=== PATIENT | female | born 1935 | race Caucasian/White ===

== ENCOUNTER 2023-11-05 13:22 | Inpatient (IN) | payer MEDICARE, OTHER ==
[~2023-11-05 13:22] MED LIST: Iopamidol-370 76% 500 ML MDV (1 ML CHARGE) ONE
[2023-11-05] MEDS ORDERED: Heparin 10,000 UNITS/ 10 ML VIAL ONE ×2 (14:22→14:42)
[2023-11-05] MEDS ORDERED: Nitroglycerin 50 MG/250 ML BOT 250 ML ONE (14:24)
[2023-11-05] MEDS ORDERED: Tenecteplase 50 MG ONE (14:24)
[2023-11-05] MEDS ORDERED: Propofol 500 MG/50 ML VIAL ONE (14:25)
[2023-11-05] MEDS ORDERED: SUGAMMADEX SODIUM 200 MG/2 ML VIAL ONE (14:25)
[2023-11-05] MEDS ORDERED: Vasopressin 20 UNITS/ML VIAL ONE (14:26)
[2023-11-05] MEDS ORDERED: fentaNYL 50 mcg/mL 1 mL Vial ONE (14:32)
[2023-11-05 14:34] LABS: #Basophils 0.1 thou/uL (0.0-0.2); #Eosinphils 0.2 thou/uL (0.0-0.7); #Monocytes 0.8 thou/uL (0.11-0.59); #Neutrophils 4.4 thou/uL (1.40-6.50); %Basophils 0.7 % (0.0-1.0); %Lymphocytes 33.2 % (21.0-51.0); %Monocytes 9.4 % (0.0-10.0); %Neutrophils 54.3 % (42.0-75.0); Hematocrit 53.2 % (36.0-47.0); Hemoglobin 17.3 g/dL (12.0-16.0); Mean Corpuscular HGB CONC 32.5 g/dL (32.0-36.0); Mean Corpuscular Volume 86.1 fl (78.0-98.0); Mean Platelet Volume 10.9 fL (7.4-10.4); Platelet Count 159 10x3/uL (130-400); RBC Distribution Width 13.7 % (11.5-14.5); Red Blood Cell (RBC) Count 6.18 mill/uL (4.20-5.40); White Blood Cell (WBC) Count 8.1 10x3/uL (4.8-10.8)
[2023-11-05 14:47] LABS: INR-International Normal Ratio 1.1; PTT 27.4 sec (22.9-36.1); Prothrombin Time 14.1 sec (12.0-14.7)
[2023-11-05 14:54] LABS: ALT (SGPT) 12 U/L (8-55); AST (SGOT) 19 U/L (5-34); Albumin 3.9 g/dL (3.4-4.8); Alkaline Phosphatase 100 U/L (40-110); Anion Gap 13 mmol/L (10-20); BUN (Urea Nitrogen) 20 mg/dL (9.8-20.1); Bilirubin, Total 1.3 mg/dL (0.2-1.2); Calc. Creatinine Clearance 0 mL/min (70-130); Calcium 9.8 mg/dL (7.8-10.44); Carbon Dioxide 20 mmol/L (23-31); Chloride 109 mmol/L (98-107); Estimated GFR 66; Globulin 2.9 g/dL (2.4-3.5); Glucose 129 mg/dL (83-110); Potassium 4.2 mmol/L (3.5-5.1); Protein, Total 6.8 g/dL (5.8-8.1); Sodium 138 mmol/L (136-145)
[2023-11-05 14:59] LABS: Troponin I Less than 0.010 ng/mL (< 0.028)
[2023-11-05 16:24] VITALS: BMI 27.4
[2023-11-05] MEDS ORDERED: hydrALAZINE 20 MG/ML VIAL SLOW IVP PRN (16:43)
[2023-11-05] MEDS ORDERED: HYDROcodone/Acetaminophen 5/325 mg Tablet PO PRN (16:43)
[2023-11-05] MEDS ORDERED: Communication Order-Pharmacy FS SCH (16:43)
[2023-11-05] MEDS ORDERED: Labetalol HCl 100 MG/20 ML VIAL SLOW IVP PRN (16:43)
[2023-11-05] MEDS ORDERED: niCARdipine 25 MG in Sodium Chloride 0.9% 250 ML 250 ML IVPB PRN (16:43)
[2023-11-05] MEDS ORDERED: Metoprolol Tartrate 5 MG (5 mL) VIAL IVP PRN ×2 (18:13→19:08)
[2023-11-05] MEDS ORDERED: Metoprolol Tartrate 5 MG (5 mL) VIAL IVP SCH (18:15)
[2023-11-05] MEDS ORDERED: Sodium Chloride 0.9% 500 ML IV SCH (19:15)
[2023-11-05] MEDS ORDERED: Digoxin 0.5 MG/2 ML AMP SLOW IVP SCH (19:15)
[2023-11-05] MEDS: Sodium Chloride 0.9% 1,000 ML IV SCH (20:24)
[2023-11-05] MEDS: Atorvastatin Calcium 40 MG TAB PO SCH (20:50)
[2023-11-06] MEDS: Acetaminophen 325 MG TAB PO PRN (10:24)
[2023-11-06] MEDS ORDERED: Fluticasone Propionate Nasal Spray 16 gm Bottle NASAL SCH (11:15)
[2023-11-06] MEDS: Sodium Chloride 0.9% 1,000 ML IV SCH (11:43)
[2023-11-06 16:13] LABS: Cardiac Risk 3.1 (Less than 4.5)
[2023-11-06 16:15] LABS: Troponin I Less than 0.010 ng/mL (< 0.028)
[2023-11-06 17:43] LABS: Troponin I Less than 0.010 ng/mL (< 0.028)
[2023-11-06] MEDS: Aspirin 325 mg Enteric Coated Tablet PO SCH (20:35)
[2023-11-06] MEDS: Atorvastatin Calcium 40 MG TAB PO SCH (20:35)
[2023-11-07] MEDS: Levothyroxine Sodium 112 MCG TAB PO SCH (05:23)
[2023-11-07 05:39] LABS: #Eosinphils 0.2 thou/uL (0.0-0.7); #Monocytes 0.6 thou/uL (0.11-0.59); #Neutrophils 4.5 thou/uL (1.40-6.50); %Basophils 0.5 % (0.0-1.0); %Eosinophils 2.2 % (0.0-10.0); %Lymphocytes 34.6 % (21.0-51.0); %Monocytes 7.4 % (0.0-10.0); %Neutrophils 54.9 % (42.0-75.0); Hematocrit 49.5 % (36.0-47.0); Hemoglobin 16.3 g/dL (12.0-16.0); Mean Corpuscular HGB CONC 32.9 g/dL (32.0-36.0); Mean Corpuscular Hemoglobin 27.7 pg (27.0-31.0); Mean Platelet Volume 10.9 fL (7.4-10.4); Platelet Count 167 10x3/uL (130-400); RBC Distribution Width 13.4 % (11.5-14.5); Red Blood Cell (RBC) Count 5.89 mill/uL (4.20-5.40); White Blood Cell (WBC) Count 8.1 10x3/uL (4.8-10.8)
[2023-11-07 05:47] LABS: Hemoglobin A1c 6.4 % (4.0-6.0)
[2023-11-07 06:03] LABS: Anion Gap 10 mmol/L (10-20); BUN (Urea Nitrogen) 13 mg/dL (9.8-20.1); Calc. Creatinine Clearance 62 mL/min (70-130); Calcium 9.8 mg/dL (7.8-10.44); Carbon Dioxide 23 mmol/L (23-31); Chloride 114 mmol/L (98-107); Estimated GFR 81; Glucose 118 mg/dL (83-110); Potassium 3.7 mmol/L (3.5-5.1); Sodium 143 mmol/L (136-145)
[2023-11-07] MEDS: Fluticasone Propionate Nasal Spray 16 gm Bottle NASAL SCH (08:45)
[2023-11-07] MEDS ORDERED: Digoxin 0.5 MG/2 ML AMP SLOW IVP SCH (15:45)
[2023-11-07] MEDS: Acetaminophen 325 MG TAB PO PRN (15:46)
[2023-11-07] MEDS: Aspirin 325 mg Enteric Coated Tablet PO SCH (20:07)
[2023-11-07] MEDS: Atorvastatin Calcium 40 MG TAB PO SCH (20:07)
[2023-11-07] MEDS: Famotidine 20 MG TAB PO SCH (20:08)
[2023-11-07] MEDS: Digoxin 0.5 MG/2 ML AMP SLOW IVP SCH (23:04)
[2023-11-08] MEDS: Digoxin 0.5 MG/2 ML AMP SLOW IVP SCH (06:13)
[2023-11-08] MEDS: Levothyroxine Sodium 112 MCG TAB PO SCH (06:14)
[2023-11-08 06:27] LABS: #Eosinphils 0.2 thou/uL (0.0-0.7); #Monocytes 0.9 thou/uL (0.11-0.59); #Neutrophils 5.2 thou/uL (1.40-6.50); %Basophils 0.4 % (0.0-1.0); %Eosinophils 1.9 % (0.0-10.0); %Lymphocytes 30.5 % (21.0-51.0); %Monocytes 9.4 % (0.0-10.0); %Neutrophils 57.4 % (42.0-75.0); Hematocrit 49.5 % (36.0-47.0); Hemoglobin 16.3 g/dL (12.0-16.0); Mean Corpuscular HGB CONC 32.9 g/dL (32.0-36.0); Mean Corpuscular Hemoglobin 27.6 pg (27.0-31.0); Mean Corpuscular Volume 83.9 fl (78.0-98.0); Mean Platelet Volume 10.5 fL (7.4-10.4); Platelet Count 160 10x3/uL (130-400); RBC Distribution Width 13.3 % (11.5-14.5)
[2023-11-08 06:45] LABS: Anion Gap 11 mmol/L (10-20); BUN (Urea Nitrogen) 11 mg/dL (9.8-20.1); Calc. Creatinine Clearance 65 mL/min (70-130); Calcium 9.6 mg/dL (7.8-10.44); Carbon Dioxide 22 mmol/L (23-31); Chloride 114 mmol/L (98-107); Estimated GFR 84; Glucose 108 mg/dL (83-110); Sodium 143 mmol/L (136-145)
[2023-11-08] MEDS: Famotidine 20 MG TAB PO SCH ×2 (08:55→20:28)
[2023-11-08] MEDS: Fluticasone Propionate Nasal Spray 16 gm Bottle NASAL SCH (09:02)
[2023-11-08] MEDS ORDERED: Enoxaparin 40 MG (0.4 mL) SYRINGE SC SCH (10:30)
[2023-11-08] MEDS: Aspirin 325 mg Enteric Coated Tablet PO SCH (20:28)
[2023-11-08] MEDS: Atorvastatin Calcium 40 MG TAB PO SCH (20:28)
[2023-11-09 03:44] LABS: #Basophils 0.1 thou/uL (0.0-0.2); #Eosinphils 0.2 thou/uL (0.0-0.7); #Monocytes 0.8 thou/uL (0.11-0.59); #Neutrophils 5.2 thou/uL (1.40-6.50); %Basophils 0.8 % (0.0-1.0); %Eosinophils 1.7 % (0.0-10.0); %Monocytes 9.1 % (0.0-10.0); Hematocrit 51.1 % (36.0-47.0); Hemoglobin 16.6 g/dL (12.0-16.0); Mean Corpuscular HGB CONC 32.5 g/dL (32.0-36.0); Mean Corpuscular Hemoglobin 27.3 pg (27.0-31.0); Mean Corpuscular Volume 83.9 fl (78.0-98.0); Mean Platelet Volume 10.4 fL (7.4-10.4); Platelet Count 158 10x3/uL (130-400); RBC Distribution Width 13.2 % (11.5-14.5); Red Blood Cell (RBC) Count 6.09 mill/uL (4.20-5.40); White Blood Cell (WBC) Count 9.1 10x3/uL (4.8-10.8)
[2023-11-09 04:06] LABS: Anion Gap 13 mmol/L (10-20); BUN (Urea Nitrogen) 13 mg/dL (9.8-20.1); Calc. Creatinine Clearance 58 mL/min (70-130); Calcium 9.5 mg/dL (7.8-10.44); Carbon Dioxide 21 mmol/L (23-31); Chloride 112 mmol/L (98-107); Estimated GFR 75; Glucose 112 mg/dL (83-110); Potassium 4.2 mmol/L (3.5-5.1); Sodium 142 mmol/L (136-145)
[2023-11-09] MEDS: Levothyroxine Sodium 112 MCG TAB PO SCH (05:03)
[2023-11-09 08:23] VITALS: TEMP 97.5
[2023-11-09] MEDS ORDERED: Enoxaparin 40 MG (0.4 mL) SYRINGE SC SCH (09:00)
[2023-11-09] MEDS ORDERED: Digoxin 0.125 MG TAB PO SCH (09:00)
[2023-11-09] MEDS: Famotidine 20 MG TAB PO SCH (09:55)
[2023-11-09] MEDS: Fluticasone Propionate Nasal Spray 16 gm Bottle NASAL SCH (09:56)
[2023-11-09 12:14] VITALS: BP 117/72
== END 2023-11-09 12:35 | disposition home or self-care (01) | DRG 61 ==
LOC: ERS 13:22 → CCU 15:28 → 2NO 11-09 07:55
PROVIDERS: ADMIT Internal Medicine; ATTEND Hospitalist
PROC: 3E03317 Introduction of Other Thrombolytic into Peripheral Vein, Percutaneous Approach (ICD-10-PCS; principal; 2023-11-05)
PROC: 3E033XZ Introduction of Vasopressor into Peripheral Vein, Percutaneous Approach (ICD-10-PCS; 2023-11-05)
DX: I63.511 Cerebral infarction due to unspecified occlusion or stenosis of right middle cerebral artery (principal); J18.9 Pneumonia, unspecified organism; G81.94 Hemiplegia, unspecified affecting left nondominant side; I10 Essential (primary) hypertension; E03.9 Hypothyroidism, unspecified; Z98.890 Other specified postprocedural states; F17.210 Nicotine dependence, cigarettes, uncomplicated; Z83.3 Family history of diabetes mellitus; E78.5 Hyperlipidemia, unspecified; I48.0 Paroxysmal atrial fibrillation; Z90.49 Acquired absence of other specified parts of digestive tract
CPT/HCPCS: 36415; 36416; 70450; 70496; 70498; 70551; 71045; 80048; 80053; 80061; 80162; 83036; 84484; 85025; 85610; 85730; 93005; 93010; 93306; 96374; J1160; J1644; J1650; J2704; J3010; J3101; J7030; J7050; Q9967